=== PATIENT | female | born 1980 | race Caucasian/White ===

== ENCOUNTER → 2016-04-05 | Outpatient (CLI) | payer BC ==
--- NOTE | 2016-04-06 07:51 | US ---
EXAMINATION TYPE: US OB <= 14 wk fetus DATE OF EXAM: 04/05/2016 3:34 PM COMPARISON: NONE CLINICAL HISTORY: spotting EXAM PERFORMED: Transabdominal (TA) EXAM MEASUREMENTS: GESTATIONAL AGE / DATING Physician Established: not established Dates by LMP: (8 weeks/3 days) EDC: 11/12/2016 Dates by First Scan: no prior Dates by Current Scan : (7 weeks/2 days) EDC: 11/20 MATERNAL ANATOMY Uterus: 11.0 x 7.3 x 5.4 cm Right Ovary: 2.7 x 1.6 x 2.3 cm Left Ovary: 2.5 x 1.8 x 2.6 cm Post CDS / Adnexa: left cyst Presence of free fluid: no Presence of corpus luteal cyst: left Presence of subchorionic bleed: 2.3 x 0.5 x 0.6 cm GESTATION / SURVEY CRL:1.3 cm (7 weeks/4 days) MSD: 2.2 cm (7 weeks/0 days) Yolk Sac (normal less than 6mm): 4mm Heart Rate: 160 bpm Rhythm: normal IUP: Viable IUP Date of LMP: 01/27/2016 IMPRESSION: viable IUP, small left cyst , small Presence of subchorionic bleed: 2.3 x 0.5 x 0.6 cm
== END | disposition home or self-care (01) ==
LOC: RADUSWWP 14:52
PROVIDERS: ATTEND Obstetrics & Gynecology
DX: O46.91 Antepartum hemorrhage, unspecified, first trimester (principal); Z3A.08 8 weeks gestation of pregnancy
CPT/HCPCS: 76801

== ENCOUNTER → 2016-04-20 | Outpatient (CLI) | payer BC ==
--- NOTE | 2016-04-20 16:16 | US ---
EXAMINATION TYPE: US OB <= 14 wk fetus DATE OF EXAM: 04/20/2016 3:25 PM COMPARISON: NONE CLINICAL HISTORY: Z36 follow up to previous US on 04/05. EXAM PERFORMED: TA EXAM MEASUREMENTS: GESTATIONAL AGE / DATING Physician Established: (9 weeks/3 days) EDC: 11/20/2016 Dates by LMP: (10 weeks/2 days) EDC: 11/14/2016 Dates by First Scan: (9 weeks/3 days) EDC: 11/20/2016 Dates by Current Scan for: (10 weeks/2 days) EDC: 11/14/2016 MATERNAL ANATOMY Uterus: 11.9 x 10.1 x 7.5cm Right Ovary: 2.2 x 1.3 x 1.6cm Left Ovary: 3.7 x 3.5 x 2.8cm Post CDS / Adnexa: wnl Presence of free fluid: no Presence of corpus luteal cyst: yes, left 1.9cm Presence of subchorionic bleed: 2.6cm, appears to have more internal echoes then previous GESTATION / SURVEY CRL: 3.4 (10 weeks/2 days) MSD: wnl Yolk Sac (normal less than 6mm): 0.3cm Heart Rate: 175 bpm Rhythm: Normal IUP: Viable IUP Date of LMP: unsure Beta HcG (if available): pending TECHNOLOGIST IMPRESSION: Viable 10w2d IUP seen and subchorionic is still seen but appears to have in ternal echoes which could mean it is clotting off and will resolve. The subchorionic hemorrhages appear to be maturing. IMPRESSION: 1. Persistence of subchorionic hemorrhage which may be maturing. 2. Single intrauterine gestation estimated at 10 weeks 2 days gestation. This would've a calculated E DC of 11/14/2016. Correlate this with the physician established EDC. Cardiac activity measures 175 bpm .
== END | disposition home or self-care (01) ==
LOC: RADUSWWP 15:07
PROVIDERS: ATTEND Obstetrics & Gynecology
DX: O20.8 Other hemorrhage in early pregnancy (principal); Z3A.10 10 weeks gestation of pregnancy
CPT/HCPCS: 76801

== ENCOUNTER → 2016-05-06 | Outpatient (CLI) | payer BC ==
[2016-05-06 09:24] LABS: CH 30.1; CHCM 33.7; HCT 40.9 % (34.0-46.0); HDW 2.36; HGB 13.6 gm/dL (11.4-16.0); MCH 29.8 pg (25.0-35.0); MCHC 33.3 g/dL (31.0-37.0); MCV 89.5 fL (80.0-100.0); Mean Platelet Volume 6.9; RBC 4.57 m/uL (3.80-5.40); RDW 12.2 % (11.5-15.5); WBC 9.3 k/uL (3.8-10.6)
[2016-05-06 09:35] LABS: Glucose 84 mg/dL (74-99); Non-African American GFR(MDRD) >60 (>60 ml/min/1.73 sqM)
[2016-05-06 10:03] LABS: Hepatitis B Surface Ag Index 0.09
[2016-05-07 04:18] LABS: Toxoplasma Antibody (IgG) 27.2 IU/mL (<7.2)
[2016-05-07 07:10] LABS: HIV-1/HIV-2 Ab Screen NONREAC (NON REAC)
== END | disposition home or self-care (01) ==
LOC: LABWHC1 08:58
PROVIDERS: ATTEND Obstetrics & Gynecology
DX: Z34.81 Encounter for supervision of other normal pregnancy, first trimester (principal); Z3A.00 Weeks of gestation of pregnancy not specified
CPT/HCPCS: 36415; 82565; 82947; 85027; 86762; 86777; 86778; 86780; 86850; 86900; 86901; 87340; 87389

== ENCOUNTER → 2016-06-28 | Outpatient (CLI) | payer BC ==
--- NOTE | 2016-06-28 12:41 | US ---
EXAMINATION TYPE: US OB anatomy transabd DATE OF EXAM: 06/28/2016 8:40 AM COMPARISON: 04/20/2016 HISTORY: 35-year-old female O36.62XO Large For Dates TECHNIQUE: Transabdominal (TA) FINDINGS: EXAM MEASUREMENTS: GESTATIONAL AGE / DATING Physician Established: (19 weeks/2 days) EDC: 11/14/2016 Dates by LMP: (20 weeks/1 days) EDC: 11/20/16 Dates by First Scan: (19 weeks/2 days) EDC: 11/14/16 Dates by Current Scan for: (20 weeks/1 days) EDC: 11/20/16 SURVEY IUP: Single PLACENTA: Anterior PREVIA: No previa. The inferior placental margin is approximately 3.6 cm from the internal cervical o s. MARC: 12.5 cm CERVICAL LENGTH (transabdominal: norm > 3.0cm): 3.5 cm BIOMETRY PRESENTATION: Vertex LIE: Transverse lie with head maternal Left BPD: 4.6 cm 20 weeks / 0 days HC: 17.7 cm 20 weeks / 2 days AC: 14.9 cm 20 weeks / 2 days FL: 3.2 cm 20 weeks / 0 days ESTIMATED WEIGHT IN GRAMS: 331 grams ESTIMATED WEIGHT IN LBS/OZS: 0 lbs. 12 oz. WEIGHT PERCENTAGE BASED ON ESTABLISHED DATE: 87 % HC/AC: 1.2 FL/AC: 21 HEART RATE: 143 bpm RHYTHM: Normal ANATOMY SEEN (within normal limits): Lateral Vent (< 1 cm) 6.9 mm Cisterna Magna (< 1.1 cm) 0.4 cm Nuchal Fold (< 0.6 cm) 0.4 cm Cerebellum (varies with age) 1.9 cm Choroid Plexus (bilateral) Midline Falx Cavus Septi Pellucidi Four Chamber Heart Situs Nose / Lips Diaphragm Kidneys (bilateral) Bladder Cord Insert Three Vessel Cord Longitudinal Spine Transverse Spine Arms (bilateral) Legs (bilateral) ANATOMY SUBOPTIMALLY VISUALIZED: Outflow tracts: LVOT/RVOT ANATOMY WHICH CAN BE REASSESSED AT FOLLOW-UP: Stomach - there is a 6 cm echogenic structure seen within the stomach lumen. Hypoechoic area along the surface of the placenta measuring 2.6 x 5.4 x 2.1 cm. There is no int ernal vascularity. IMPRESSION: 1. Single live intrauterine with established gestational age of 19 weeks 2 days by prior da ting scan. 2. Current ultrasound biometry is concordant but larger (20 weeks 1 day). Coincidentally, this is ex actly concordant with dates by LMP. Based on prior dating scan, EFW is at the 87th percentile. If ind icated, follow-up can be considered to assess interval growth. 3. A couple of the structures on the survey were suboptimally visualized (LVOT and RVOT). The p atient can be scheduled for a rescan of missed anatomy if desired. 4. A 6 cm echogenic focus seen within the stomach of uncertain etiology, possible ingested debris. No other suspicious echogenic bowel is seen. This can also be reassessed at follow-up. 5. Otherwise, the remaining anatomy appears normal. 6. A 5.4 x 2.6 cm nonvascular, hypoechoic area along the surface of the placenta could represen t an area of placental hemorrhage. This can also be reassessed at follow-up.
[2016-06-29 09:10] LABS: Alpha Fetoprotein 56.5 ng/mL; Alpha Fetoprotein (M.O.M) 1.18; B-HCG (M.O.M.) 1.72; Gestational Age (days) 2; Inhibin A (M.O.M.) 1.09; Interpretation SeeBelow; Maternal Age at EDD (Yrs) 34; Unconjugated Estriol (M.O.M.) 0.84
== END | disposition home or self-care (01) ==
LOC: RADUSWWP 07:40
PROVIDERS: ATTEND Obstetrics & Gynecology
DX: O36.62X0 Maternal care for excessive fetal growth, second trimester, not applicable or unspecified (principal); Z3A.19 19 weeks gestation of pregnancy
CPT/HCPCS: 36415; 76811; 82105; 82677; 84702; 86336

== ENCOUNTER → 2016-08-24 | Outpatient (CLI) | payer BC ==
[2016-08-24 09:13] LABS: CH 31.6; HCT 36.3 % (34.0-46.0); HDW 2.88; HGB 12.4 gm/dL (11.4-16.0); MCH 31.1 pg (25.0-35.0); MCHC 34.2 g/dL (31.0-37.0); MCV 90.8 fL (80.0-100.0); Mean Platelet Volume 6.8; RDW 12.8 % (11.5-15.5); WBC 7.6 k/uL (3.8-10.6)
== END | disposition home or self-care (01) ==
LOC: LABWHC1 07:56
PROVIDERS: ATTEND Obstetrics & Gynecology
DX: Z34.82 Encounter for supervision of other normal pregnancy, second trimester (principal); Z3A.00 Weeks of gestation of pregnancy not specified
CPT/HCPCS: 36415; 82950; 85027

== ENCOUNTER 2016-11-15 05:53 | Inpatient (IN) | payer BC ==
[2016-11-11 12:02] VITALS: BMI 26.4
--- NOTE | 2016-11-12 06:33 | P.HPOB ---
History of Present Illness H&P Date: 11/12/16 Chief Complaint: Patient is presenting for repeat section. This patient is a pleasant 35-year-old 3 para 1 female estimated date of confinement 11/20/2016 estimated gestational age 39 and one sevenths weeks gestation who presents to labor and delivery for elective repeat section. Patient had a previous section for cephalopelvic dystocia and has requested repeat at this time. care has been complicated by marginal cord insertion that was found by maternal medicine. Patient's headache normal antepartum testing including nonstress tests and growth ultrasounds. She did have a subchorionic bleed early in the but this completely resolved. otherwise has been uncomplicated. Review of Systems Constitutional: Denies chills, Denies fever Ears, nose, mouth and throat: Denies headache, Denies sore throat Cardiovascular: Denies chest pain, Denies shortness of breath Respiratory: Denies cough Gastrointestinal: Reports heartburn Genitourinary: Reports Menstruation: Reports amenorrhea Musculoskeletal: Denies myalgias Past Medical History Past Medical History: No Reported History History of Any Multi-Drug Resistant Organisms: None Reported Past Surgical History: Section Additional Past Surgical History / Comment(s): rhinoplasty, ACL rt knee Past Anesthesia/Blood Transfusion Reactions: No Reported Reaction Past Psychological History: No Psychological Hx Reported Smoking Status: Never smoker Past Alcohol Use History: None Reported Past Drug Use History: None Reported - Past Family History Mother Family Medical History: No Reported History Medications and Allergies Home Medications Medication Instructions Recorded Confirmed Type Pnv No.95/Ferrous Fum/Folic AC 1 each PO DAILY 11/11/16 11/11/16 History [ Multivitamin Tablet] Allergies Allergy/AdvReac Type Severity Reaction Status Date / Time No Known Allergies Allergy Verified 11/11/16 11:56 Exam - Vital Signs Vital signs: Intake and Output 11/11/16 11/11/16 11/12/16 14:59 22:59 06:59 Other: Weight 83.461 kg Patient Weight 11/12/16 06:59 Weight 83.461 kg - OBG Physical Exam Abdomen: bowel sounds normal, no diffuse tenderness, no bruit present, no guarding noted, no hepatomegaly, no splenomegaly, no mass Vulva: both: normal Vagina: normal moisture, no discharge Cervix: no lesion (Cervix in the office was closed.), no discharge Uterus: enlarged (Fundal height in the office was 39 cm.) Results blood work shows she is B+, rubella immune, RPR nonreactive, hepatitis B negative, HIV nonreactive, Glucola was normal at 101, group B strep was negative, ultrasounds showed early subchorionic bleed however this did resolve and she did see maternal medicine that noted a normal level III ultrasound. She did have a marginal cord insertion noted at that time. Assessment and Plan (1) Third trimester Narrative/Plan: This is a pleasant 35-year-old 3 para 1 female 39 and one sevenths weeks gestation who presents to labor and delivery for elective repeat section. Plan is repeat low transverse section. Patient and I have discussed the surgery in detail including the risks including risks of infection , bleeding, possible injury to bowel, bladder, vessels, and/or other organs. All the patient's questions were answered and a written consent is obtained. Status: Acute (2) Previous delivery affecting Status: Acute (3) Marginal insertion of umbilical cord Status: Acute
[2016-11-15] MEDS ORDERED: LACTATED RINGERS 1,000 ML IV SCH (06:08)
[2016-11-15] MEDS ORDERED: CITRIC ACID-SODIUM CITRATE 15 ML CUP PO ONE (06:08)
[2016-11-15] MEDS ORDERED: LACTATED RINGERS 1,000 ML IV ONE (06:08)
[2016-11-15 06:46] LABS: Basophils % (A) 1 %; CH 32.1; CHCM 34.7; Eosinophils # (A) 0.1 k/uL (0-0.7); Eosinophils % (A) 1 %; HCT 38.3 % (34.0-46.0); HDW 2.59; HGB 12.6 gm/dL (11.4-16.0); Luc # (Auto) 0.19; Luc % (Auto) 3; Lymphocytes # (A) 2.1 k/uL (1.0-4.8); Lymphocytes % (A) 27 %; MCH 30.6 pg (25.0-35.0); MCHC 32.9 g/dL (31.0-37.0); Mean Platelet Volume 8.9; Monocytes # (A) 0.3 k/uL (0-1.0); Monocytes % (A) 4 %; Neutrophils # (A) 4.9 k/uL (1.3-7.7); Neutrophils % (A) 65 %; RBC 4.12 m/uL (3.80-5.40); RDW 14.1 % (11.5-15.5); WBC 7.6 k/uL (3.8-10.6); WBC (Perox) 8.05
[2016-11-15] MEDS ORDERED: ceFAZolin 2 GM in SODIUM CHLORIDE 0.9% 100 ML IVPB ONE (07:15)
--- NOTE | 2016-11-15 08:40 | P.OP ---
Date of Procedure: 11/15/16 Preoperative Diagnosis: #1: 39-2/7 week . #2: Previous low transverse section desires repeat. Postoperative Diagnosis: Same Procedure(s) Performed: Repeat low transverse section. Implants: Anesthesia: spinal Surgeon: Juve Wu Dispatcher Maintenance #1: Katya Jimenez Estimated Blood Loss (ml): 800 Pathology: other Condition: stable (The center) Disposition: floor Indications for Procedure: Please see dictated H&P for intimate details of this patient's admission. In brief summary this is a pleasant 35-year-old 3 para 1 female 39-2/7 weeks gestation who is admitted to labor and delivery for elective repeat section. Patient does understand the surgery and risks including risks of infection, bleeding, possible injury to bowel, bladder, vessels, and other organs. Patient also understands risk of DVT pulmonary embolism. All the patient's questions are answered and a written consent is obtained. Operative Findings: This was a vigorous viable female Apgars 9 and 9 delivery time was 0810 hours. Description of Procedure: This patient has a Mcginnis catheter placed to straight drain. She has subsequently taken to the operating room where she sat up and spinal anesthetic is administered without incident. With adequate level of anesthesia she has abdominal prep and drape. Scalpels and taken the previous Pfannenstiel incision is then incised. A second scalpel is then taken down to the fascia. Fascia scored with a knife. Fascial incision extended bilaterally using Do scissors. Fascia is then dissected off the rectus muscles. Rectus muscles are and the peritoneum was identified and entered sharply. Peritoneal incision extended superior and inferior without difficulty. Bladder blade is then placed. Bladder peritoneum was then developed sharply. Scalpels and taken and a low transverse uterine segment is then made. Using a hemostat I then gently into the uterine cavity and there is loss of clear fluid. This incision is extended bluntly. Infant's head is then guided through the incision with fundal pressure delivered. Mouth and nares are bulb suctioned. There is no evidence of a nuchal cord. We then have deliver the anterior posterior shoulder and rest this 's body. This is a vigorous viable female Apgars are 9 and 9 delivery time was 0810 hours. After delivery of the the umbilical cord is doubly clamped and cut appears to be trivascular. Placenta is then manually extracted intact. Uterus is then externalized and uterine incision demarcated with Gomes clamps. Uterine incision then closed using 0 Vicryl running locked fashion 2 layers. Excellent hemostasis is noted. The bladder peritoneum was then reapproximated using a 3- 0 Vicryl. Excess fluid is removed from the abdomen and pelvis. Uterus tubes and ovaries appear normal for term gestation. Uterus placed back into the abdomen. Parietal peritoneum was then closed using 0 Vicryl running fashion. Rectus muscles reapproximated in 0 Vicryl interrupted fashion. Fascia is then closed using 0 PDS. Fascial incision is intact and hemostatic. Subcutaneous tissues and closed using 3-0 Vicryl. Skin is and closed using naseem. Sterile dressing is applied. All counts are correct 3. There are no complications. Infant and mother are taken together birthing suite in satisfactory condition.
[2016-11-15] MEDS ORDERED: NALOXONE 0.4 MG/ML 1 ML VIAL IV PRN (08:54)
[2016-11-15] MEDS ORDERED: METOCLOPRAMIDE 5 MG/ML 2 ML VIAL IVP PRN (08:54)
[2016-11-15] MEDS ORDERED: LANOLIN CREAM 5 GM TUBE TOPICAL PRN (08:54)
[2016-11-15] MEDS ORDERED: diphenhydrAMINE 50 MG/ML 1 ML VIAL IVP PRN (08:54)
[2016-11-15] MEDS ORDERED: ACETAMINOPHEN TAB 325 MG TAB PO PRN (08:54)
[2016-11-15] MEDS ORDERED: SIMETHICONE 80 MG CHEWABLE PO PRN (08:54)
[2016-11-15] MEDS ORDERED: ONDANSETRON 4 MG/2 ML VIAL IVP PRN (08:54)
[2016-11-15] MEDS ORDERED: ZOLPIDEM 5 MG TAB PO PRN (08:54)
[2016-11-15] MEDS ORDERED: Acetaminophen-Codeine 300-30mg TAB PO PRN (08:54)
[2016-11-15] MEDS ORDERED: diphenhydrAMINE 25 MG CAP PO PRN (08:54)
[2016-11-15] MEDS: KETOROLAC 30 MG/ML 1 ML VIAL IVP PRN ×3 (09:41→22:58)
[2016-11-15] MEDS: SENNOSIDES-DOCUSATE SODIUM 1 EACH TAB PO SCH ×2 (09:41→19:55)
[2016-11-15] MEDS: PRENATAL VIT-IRON-FOLIC ACID 1 EACH CAP PO SCH (09:41)
[2016-11-15] MEDS: LACTATED RINGERS 1,000 ML IV SCH (10:37)
[2016-11-16] MEDS: LACTATED RINGERS 1,000 ML IV SCH ×2 (00:37→08:37)
[2016-11-16] MEDS: KETOROLAC 30 MG/ML 1 ML VIAL IVP PRN ×2 (05:04→11:03)
--- NOTE | 2016-11-16 05:41 | P.PNOBGPC ---
Subjective - Subjective Patient reports: Reports appetite normal, Reports voiding normally, Reports pain well controlled, Reports ambulating normally : doing well Objective - Vital Signs Latest vital signs: Vital Signs Temp Pulse Resp BP Pulse Ox 11/16/16 04:00 98.5 F 60 16 106/63 99 11/16/16 00:00 97.7 F 67 16 119/62 99 11/15/16 20:00 97.3 F L 62 16 143/63 99 11/15/16 16:00 98.1 F 63 16 128/68 98 11/15/16 10:41 97.9 F 62 18 134/79 99 11/15/16 10:11 98.3 F 64 18 133/68 89 L 11/15/16 09:41 59 L 18 124/67 99 11/15/16 09:26 64 18 130/73 98 11/15/16 09:11 66 18 119/57 99 11/15/16 08:56 61 18 117/57 99 11/15/16 08:41 98.0 F 68 18 105/61 99 11/15/16 06:08 98.1 F 72 19 145/72 100 Intake and Output 11/15/16 11/15/16 11/16/16 14:59 22:59 06:59 Intake Total 2100 Output Total 2000 2700 Balance 100 -2700 Intake: IV 1800 Oral 300 Output: Urine 1200 2700 Uretheral (Mcginnis) 700 Estimated Blood Loss 800 Other: Voiding Method Indwelling Catheter # Voids 1 1 - Exam Lungs: bilateral: normal Chest: Normal S1, Normal S2 Extremities: Present: normal Abdomen: Present: normal appearance, soft. Absent: distention, tenderness Incision: Present: normal, dry, intact Uterus: Present: normal, firm Assessment and Plan (1) Third trimester Narrative/Plan: Postoperative day #1. Patient is resting without complaints. Vital signs are stable and she is afebrile. Uterus is firm nontender and her incision is intact and dry. Patient is tolerating regular diet and ambulating and urinating without difficulty. CBC is pending at this time. My impression is that this is a normal post operative course. Plan is to check a CBC, allow the patient to shower, and encourage ambulation. Most likely discharge home tomorrow. Current Visit: Yes Status: Acute Code(s): Z34.93 - ENCNTR FOR SUPRVSN OF NORMAL PREG, UNSP, THIRD TRIMESTER SNOMED Code(s): 44102201 (2) Previous delivery affecting Current Visit: Yes Status: Acute Code(s): O34.219 - MATERNAL CARE FOR UNSP TYPE SCAR FROM PREVIOUS DEL SNOMED Code(s): 466007114 (3) Marginal insertion of umbilical cord Current Visit: Yes Status: Acute Code(s): [id number] - SNOMED Code(s): 07917972
[2016-11-16 07:23] LABS: Basophils % (A) 0 %; CHCM 34.2; Eosinophils # (A) 0.1 k/uL (0-0.7); Eosinophils % (A) 1 %; HCT 36.1 % (34.0-46.0); HDW 2.54; HGB 11.8 gm/dL (11.4-16.0); Luc % (Auto) 2; Lymphocytes # (A) 1.3 k/uL (1.0-4.8); Lymphocytes % (A) 14 %; MCH 30.9 pg (25.0-35.0); MCHC 32.8 g/dL (31.0-37.0); MCV 94.3 fL (80.0-100.0); Monocytes # (A) 0.4 k/uL (0-1.0); Monocytes % (A) 4 %; Neutrophils # (A) 7.6 k/uL (1.3-7.7); Neutrophils % (A) 80 %; RBC 3.83 m/uL (3.80-5.40); RDW 14.4 % (11.5-15.5); WBC 9.6 k/uL (3.8-10.6); WBC (Perox) 9.97
[2016-11-16] MEDS: SENNOSIDES-DOCUSATE SODIUM 1 EACH TAB PO SCH ×2 (08:36→19:53)
--- NOTE | 2016-11-16 10:36 | P.PN ---
Progress Note - Text Postoperative day 1 status post section under spinal anesthesia, and intrathecal morphine given for postoperative analgesia, patient doing well, there is no anesthesia related complications, further management as per her primary team
[2016-11-16] MEDS: PRENATAL VIT-IRON-FOLIC ACID 1 EACH CAP PO SCH (12:19)
[2016-11-16] MEDS: Acetaminophen-Codeine 300-30mg TAB PO PRN ×2 (15:42→19:53)
[2016-11-16] MEDS: IBUPROFEN 600 MG TAB PO PRN ×2 (17:02→23:38)
[2016-11-17 00:37] VITALS: RESP 16; TEMP 97.9
[2016-11-17] MEDS: Acetaminophen-Codeine 300-30mg TAB PO PRN (02:42)
[2016-11-17] MEDS ORDERED: NALBUPHINE 10 MG/ML AMPUL ONE (07:51)
[2016-11-17] MEDS ORDERED: ePHEDrine SULFATE/0.9% NACL/PF 50 MG/5 ML SYRINGE IV ONE (07:51)
[2016-11-17] MEDS ORDERED: MORPHINE SULFATE (PF) 0.3 MG/0.3 ML SYR ONE (07:51)
[2016-11-17] MEDS ORDERED: OXYTOCIN 10 UNIT/ML 1 ML VIAL ONE (07:51)
[2016-11-17] MEDS ORDERED: ONDANSETRON 4 MG/2 ML VIAL ONE (07:51)
[2016-11-17] MEDS: IBUPROFEN 600 MG TAB PO PRN (07:56)
[2016-11-17] MEDS: SENNOSIDES-DOCUSATE SODIUM 1 EACH TAB PO SCH (08:05)
--- NOTE | 2016-11-17 08:30 | P.DS ---
Providers Date of admission: 11/15/16 05:53 Expected date of discharge: 11/17/16 Attending physician: Juve Wu Primary care physician: Stated None Hospital Course: This is a 35-year-old female 3 para 1 at 39-2/7 weeks who presented for scheduled repeat section. She underwent a repeat low transverse section on 11/15/2016 and delivered a viable female infant with scores of 9 at 1 minute and 9 at 5 minutes and weight of 7 lbs. 9 oz. Her postoperative and course has been uncomplicated. She is passing flatus and bowel movement and urinating without difficulty. Lochia is decreasing. Pain is well-controlled. Vital signs are stable. Abdomen is soft with fundus firm and nontender. Bowel sounds are present 4. Incision is clean dry and intact with naseem in place. Extremities show negative Homans. Impression is status post repeat low transverse section postoperative day #2. Plan is to discharge home today. Routine postoperative and instructions are given. She is advised to follow up with Dr. Wu in approximately 1 week for postoperative check. She is advised to call the office if she has any further questions or concerns prior to her appointment time. Procedures: Repeat low transverse section on 11/15/2016 Patient Condition at Discharge: Stable Plan - Discharge Summary New Discharge Prescriptions: New Acetaminophen-Codeine 300-30mg [Tylenol w/codeine #3] 1 - 2 each PO Q4HR PRN #30 tab PRN Reason: Mild Pain Ibuprofen [Motrin] 600 mg PO Q6HR PRN #40 tab PRN Reason: Mild Pain Or Fever >= 100.5 No Action Pnv No.95/Ferrous Fum/Folic AC [ Multivitamin Tablet] 1 tab PO DAILY Discharge Medication List Pnv No.95/Ferrous Fum/Folic AC [ Multivitamin Tablet] 1 tab PO DAILY [History] Acetaminophen-Codeine 300-30mg [Tylenol w/codeine #3] 1 - 2 each PO Q4HR PRN # 30 tab 11/16/16 [Rx] Ibuprofen [Motrin] 600 mg PO Q6HR PRN #40 tab 11/16/16 [Rx] Follow up Appointment(s)/Referral(s): Juve Wu MD [STAFF PHYSICIAN] - 1 Week (Patient also has a appointment on December 27 at 10:15 AM.) Patient Instructions/Handouts: (DC) Activity/Diet/Wound Care/Special Instructions: No strenuous activity or heavy lifting for 6 weeks. No intercourse or anything per vagina for 6 weeks. Please call if any fever, chills, excessive vaginal bleeding, and/or abdominal pain. Discharge Disposition: HOME SELF-CARE
[2016-11-17 10:30] VITALS: BP 109/70; PULSE 68
== END 2016-11-17 10:24 | disposition home or self-care (01) | DRG 766 ==
LOC: 4FBP 05:53
PROVIDERS: ADMIT Obstetrics & Gynecology; ATTEND Obstetrics & Gynecology
PROC: 10D00Z1 Extraction of Products of Conception, Low, Open Approach (ICD-10-PCS; principal; 2016-11-15 08:00)
DX: O34.211 Maternal care for low transverse scar from previous cesarean delivery (principal); O43.123 Velamentous insertion of umbilical cord, third trimester; Z37.0 Single live birth; Z3A.39 39 weeks gestation of pregnancy
CPT/HCPCS: 85025; 86850; 86900; 86901; 88307